=== PATIENT | male | born 1950 | race Caucasian/White ===

== ENCOUNTER 2017-03-24 13:50 | Emergency (ER) | payer OTHER ==
[~2017-03-24] VITALS: Ht 180.3 cm; Wt 88.0 kg
[2017-03-24 14:45] VITALS: BP 114/70
[2017-03-24] MEDS ORDERED: ALBUTEROL SULF8.5 GM INH (15:32)
[2017-03-24] MEDS ORDERED: ZITHROMAX250 MG ORAL (15:32)
[2017-03-24] MEDS ORDERED: PREDNISONE20 MG ORAL (15:33)
[2017-03-24] MEDS ORDERED: PROMETHAZI6.25 MG/1 ORAL (15:33)
--- NOTE | 2017-03-24 15:34 | Emergency Room Report ---
History of Present Illness General Chief Complaint: Flu Like Symptoms Source: Patient Present Illness HPI 67-year-old male presents ER complaining of cough and congestion x2 weeks. Patient complains of non productive cough but "feels sputum in his throat". Patient reports a history of sick contacts diagnosed with influenza A in the same household. Patient wants to know if Tamiflu will help in treatment. Patient denies use of NSAIDs. Patent reports using Delsym cough syrup without relief of cough symptoms. Patient reports history of smoking; quit 3 months ago. Patient denies fever, chest pain, nausea, vomiting, diarrhea, SOB, difficulty breathing. Allergies: Coded Allergies: No Known Allergies (Unverified , 03/24/17) Patient History Past Medical History: see triage record Social History: Reports: smoking, Denies: alcohol use, drug use Immunizations: UTD Reviewed Nursing Documentation: PMH: Agreed, PSxH: Agreed Nursing Documentation-PMH Past Medical History: No Stated History Review of Systems All Other Systems: negative except mentioned in HPI Physical Exam Vital Signs Date Time Temp Pulse Resp B/P (MAP) Pulse Ox O2 Delivery O2 Flow Rate FiO2 03/24/17 14:13 97.9 93 16 117/76 97 Room Air Sp02 EP Interpretation: reviewed, normal General Appearance: no apparent distress, alert, GCS 15, non-toxic Head: normocephalic, atraumatic Eyes: bilateral eye normal inspection, bilateral eye PERRL ENT: hearing grossly normal, normal pharynx, no angioedema, normal voice, uvula midline, moist mucus membranes Neck: full range of motion, supple/symm/no masses Respiratory: chest non-tender, normal breath sounds, no respiratory distress, no retraction, no accessory muscle use, no wheezing, crackles - left lower lobe : diffuse, speaking full sentences Cardiovascular #1: regular rate, rhythm Musculoskeletal: back normal, gait/station normal, normal range of motion, non- tender Neurologic: alert, oriented x3, responsive, motor strength/tone normal, sensory intact, speech normal Psychiatric: judgement/insight normal, memory normal, mood/affect normal Skin: normal color, no rash, warm/dry, well hydrated Medical Decision Making PA Attestation Dr. Herrmann is my supervising Physician whom patient management has been discussed with. Diagnostic Impression: Primary Impression: Atypical pneumonia ER Course Pt presents to ED c/o cough and congestion. DDX considered but are not limited to influenza, viral URI, pneumonia, strep throat, rhinitis, sinusitis, pneumothorax. VITAL SIGNS are WNL, patient is afebrile. ORDERS: CXR, no acute disease noted. ED INTERVENTIONS:none required at this time DISCHARGE: At this time pt is stable for d/c to home. Patient he is ready to be discharged to home. -Rx given for Prednisone. -Rx provided for Amoxicillin. -Rx given for Promethazine DM cough syrup for cough sx. Patient advised not to drink alcohol, drive, or operate heavy machinery while taking cough syrup as this may cause drowsiness. -Rx provided for Albuterol MDI. -Patient advised to take Motrin at home for fever and pain symptoms. Patient to take medications as instructed Will provide with patient care instructions and any necessary prescriptions. Care plan and follow-up instructions provided. Patient instructed to follow-up with primary care provider in 3 - 5 days. Patient questions asked and answered. ER precautions given. Patient instructed to return to ER immediately for any new or worsening of symptoms including but not limited to increasing SOB, persistent fever. Chest X-Ray Diagnostic Results Chest X-Ray Diagnostic Results : Chest X-Ray Ordered: Yes # of Views/Limited/Complete: 1 View Indication: Chest Pain EP Interpretation: Yes PA Xray: Interpretation reviewed, by supervising MD, and agrees with findings. Interpretation: no consolidation, no effusion, no pneumothorax, no acute cardiopulmonary disease Impression: No acute disease SCOTT Scribe Text Camron Conner PA-C Last Vital Signs Date Time Temp Pulse Resp B/P (MAP) Pulse Ox O2 Delivery O2 Flow Rate FiO2 03/24/17 14:13 97.9 93 16 117/76 97 Room Air Disposition: HOME, SELF-CARE Condition: Stable Scripts Prednisone* (PREDNISONE*) 20 Mg Tablet 40 MG ORAL DAILY for 5 Days, #10 TAB Prov: Garland Conner P.A. 03/24/17 Promethazine Hcl (PROMETHAZINE HCL*) 6.25 Mg/5 Ml Syrup 5 ML ORAL Q8H for 7 Days, #120 ML 0 Refills Prov: Garland Conner P.A. 03/24/17 Albuterol Sulfate* (ALBUTEROL SULFATE MDI*) 8.5 Gm Hfa.aer.ad 2 PUFF INH Q6H, #1 INH 0 Refills Prov: Garland Conner 03/24/17 Azithromycin* (ZITHROMAX*) 250 Mg Tablet 250 MG ORAL DAILY for 5 Days, #6 TAB 0 Refills Take two tables once daily for 1 day, then one tablet once daily for 4 days. Prov: Garland Conner 03/24/17 Referrals: NON PHYSICIAN (PCP) Patient Instructions: Community-Acquired Pneumonia, Adult Additional Instructions: Followup with primary care provider in 3 -5 days. Take medications as directed. Do not take cough syrup and drive, drink or operate machinery. Patient questions asked and answered. ER precautions given, patient instructed to return to ER immediately for any new or worsening of symptoms including but not limited to fever, chest pain, SOB. Garland Conner Mar 24, 2017 15:34
[2017-03-24 15:45] VITALS: BP 117/76
--- NOTE | 2017-03-24 16:09 | Diagnostic Imaging Report ---
Indication: Pain Technique: XRAY Chest 1v Comparison: None Findings: Heart size and mediastinal contours are within normal limits given technique. There is no focal consolidation, pneumothorax or pleural effusion. Osseous structures demonstrate no acute abnormality. Degenerative changes seen in the spine. Impression: No radiographic evidence of acute cardiopulmonary disease.
== END 2017-03-24 15:37 | disposition home or self-care (01) ==
LOC: EMR 14:40
DX: J18.9 Pneumonia, unspecified organism (principal); F17.200 Nicotine dependence, unspecified, uncomplicated
CPT/HCPCS: 71045; 99283